=== PATIENT | male | born 2000 | race Caucasian/White ===

== ENCOUNTER 2021-06-10 01:39 | Emergency (ER) | payer BC ==
[~2021-06-10] VITALS: Ht 188 cm; Wt 79.5 kg
[2021-06-10 01:47] VITALS: TEMP 98.1
[2021-06-10 03:40] VITALS: BP 114/78; PULSE 76
== END 2021-06-10 03:40 | disposition home or self-care (01) ==
LOC: COL.ER 01:39
DX: J10.1 Influenza due to other identified influenza virus with other respiratory manifestations (principal); Z20.822 Contact with and (suspected) exposure to COVID-19